=== PATIENT | female | born 1950 | race Caucasian/White ===

== ENCOUNTER 2018-12-01 13:22 | Outpatient (CLI) | payer MEDICARE ==
--- NOTE | 2018-12-01 15:02 | CT ---
CT ABDOMEN AND PELVIS WITH ORAL AND IV CONTRAST: Date: 12/01/18 HISTORY: Lower abdominal 5-6 cm mass, possible hernia or lipoma. Intra-abdominal and pelvic swelling, mass and lump, unspecified site. Breast cancer in 2013. COMPARISON: 04/26/14. FINDINGS: The 5 mm nodule in the right lower lobe is stable. There is minimal scarring in the left lung base. The liver, spleen, pancreas, adrenal glands, and kidneys are normal. No calcified gallstones are seen . No free air, free fluid, or lymphadenopathy is noted in the abdomen or pelvis. There are vascular c alcifications without evidence of aneurysmal dilatation of the abdominal aorta. There are degenerativ e changes in the spine. No osteolytic or osteoblastic lesions are seen. There are postop changes of lower anterior abdominal wall repair. There is an 8.0 x 2.0 x 3.0 cm soft tissue density with small amount of internal fluid and minimal surrounding inflammatory change in th e right lower anterior abdominal wall. There is a similar soft tissue density arising from the left a nterior abdominal wall measuring about 3.3 cm in largest dimension on the left. A small, fat-containi ng umbilical hernia is again seen. The patient is post hysterectomy. IMPRESSION: 1. No definite evidence of intra-abdominal or pelvic metastasis. 2. Mass-like densities in the lower anterior abdominal wall, larger on the right, may be due to post op change. The possibility of infection cannot be excluded. Needle aspiration would be helpful. POS: OFF
[2018-12-01] MEDS ORDERED: ISOVUE-370 76%-LOCM 1 ML ONE (15:28)
== END 2018-12-01 13:23 | disposition home or self-care (01) ==
LOC: BICCT 13:22
PROVIDERS: ATTEND Family Medicine
DX: R19.00 Intra-abdominal and pelvic swelling, mass and lump, unspecified site (principal); Z98.890 Other specified postprocedural states
CPT/HCPCS: 74177; Q9966

== ENCOUNTER 2022-06-30 14:42 | Outpatient (CLI) | payer MEDICARE | END 2022-06-30 14:43 | disposition home or self-care (01) | LOC: BICRAD 14:42 | PROVIDERS: ATTEND Family Medicine | DX: M54.50 Low back pain, unspecified (principal); M47.816 Spondylosis without myelopathy or radiculopathy, lumbar region | CPT/HCPCS: 72100 ==

== ENCOUNTER 2022-11-08 08:59 | Outpatient (CLI) | payer MEDICARE | END 2022-11-08 09:00 | disposition home or self-care (01) | LOC: BICULT 08:59 | PROVIDERS: ATTEND Family Medicine | DX: R10.9 Unspecified abdominal pain (principal); R93.2 Abnormal findings on diagnostic imaging of liver and biliary tract | CPT/HCPCS: 76700 ==